=== PATIENT | male | born 1990 | race African-American/Black ===

== ENCOUNTER 2022-07-06 20:32 | Emergency (ER) | payer OTHER, MEDICAID, SELFPAY ==
[2022-07-06 20:41] VITALS: BP 138/88; PULSE 98; RESP 18; TEMP 36.7; O2SAT 98
--- NOTE | 2022-07-06 21:54 | ED.ANXIETY ---
HPI - Anxiety General Chief Complaint: Anxiety Stated Complaint: Anxiety Time Seen by Provider: 07/06/22 21:11 History of Present Illness HPI narrative: 32-year-old male without known medical history reports for evaluation for anxiety and panic attacks. Patient reports for the past week he been feeling down, depressed, hopeless. States 2 days ago and yesterday he had episodes of panic attacks with diaphoresis, nervousness. Patient's girlfriend who is present in the room assist with history and reports that 2 days ago while patient was in the middle of a panic attack he became rageful . Patient's mother called the police who arrived at the scene and was able to calm the patient down. Reports the patient then went to sleep. Patient states he has had increased stress with work has been feeling overwhelmed. He denies SI or HI. He does report he has been hearing voices for the past 2 years. He states these voices do not tell him to hurt himself or others. Patient's girlfriend in the room reports that the patient did not act violent towards her or his mother during these episodes. Patient denies alcohol or drug use. He does not have a primary care provider. He does report a family history of psychiatric disorders, but is unable to specify what kind. Related Data Allergies Allergy/AdvReac Type Severity Reaction Status Date / Time No Known Allergies Allergy Verified 07/06/22 21:30 Review of Systems Review of Systems: CONSTITUTIONAL: Denies fever, chills EYES: Denies visual changes, redness, or discharge. ENT: Denies rhinorrhea, congestion, sore throat, or otalgia. CARDIOVASCULAR: Denies chest pain, palpitations, or edema. RESPIRATORY: Denies cough or dyspnea. GASTROINTESTINAL: Denies abdominal pain, nausea, vomiting, or diarrhea. GENITOURINARY: Denies dysuria or hematuria. SKIN: Denies rash or itching. MUSCULOSKELETAL: Denies back pain, joint pain, or myalgia. NEUROLOGIC: Denies headache, numbness, dizziness, or weakness. PSYCHIATRIC: See HPI Exam Narrative: GENERAL: Well-appearing, well-nourished, and in no acute distress. Patient resting comfortably in the bed. HEAD: Normocephalic, atraumatic. EYES: PERRLA and EOMI. ENT: Nares clear, no rhinorrhea or epistaxis. Mucous membranes moist. Oropharynx without tonsillar hypertrophy exudate or other lesions. NECK: Supple. No adenopathy or masses. CHEST: Clear to auscultation. No respiratory distress. No wheezes rales or rhonchi HEART: Regular rate and rhythm. No murmur heard. Normal peripheral pulses. ABDOMEN: Soft, nontender, nondistended, normal active bowel sounds. EXTREMITIES: Normal range of motion. No edema. SKIN: Warm, dry, no rash. NEURO: No focal deficits. Alert and oriented x3. Cranial nerves II through XII intact. PSYCH: Normal mood and affect. Speech is nonpressured. Patient is calm and cooperative. No active delusions or hallucinations. Course Vital Signs Vital signs: Vital Signs Temperature 98.0 F 07/06/22 20:41 Pulse Rate 98 07/06/22 20:41 Respiratory Rate 18 07/06/22 20:41 Blood Pressure 138/88 07/06/22 20:41 Pulse Oximetry 98 07/06/22 20:41 Temperature 98.0 F 07/06/22 20:41 Pulse Rate 98 07/06/22 20:41 Respiratory Rate 18 07/06/22 20:41 Blood Pressure 138/88 07/06/22 20:41 Pulse Oximetry 98 07/06/22 20:41 MDM - Anxiety MDM Narrative Medical decision making narrative: 32-year-old male reports for evaluation of anxiety and panic attacks the past 2 days. Patient and patient's girlfriend report episodes of panic attacks incited by stress and feeling overwhelmed with work. Patient describes these episodes as feeling nervous and diaphoretic. He does endorse hearing voices for the past multiple years, and reports feeling down, depressed, hopeless the past week. Denies SI and HI. Denies alcohol or drug use. On exam, the patient was calm and cooperative resting in the exam bed. I offered to consult psych
--- NOTE | 2022-07-06 21:59 | PC.NURSE ---
Pt stopped RN in [facility] stating that he wanted to speak with Vilma HOLLINGSWORTH. Pt reports to staff he no longer wants to speak to crisis states that he wants anxiety medications and to be discharged.
== END 2022-07-06 22:16 | disposition home or self-care (01) ==
PROVIDERS: Emergency Provider Physician Assistant
DX: F43.0 Acute stress reaction (principal)
CPT/HCPCS: 99283